=== PATIENT | male | born 1955 | race Caucasian/White ===

== ENCOUNTER 2017-02-06 20:24 | Emergency (ER) | payer OTHER ==
[~2017-02-06] VITALS: Ht 177.8 cm; Wt 97.8 kg
[2017-02-06] MEDS ORDERED: NEXI20GR PO (20:36)
[2017-02-06] MEDS ORDERED: GLUC1CAP9 PO (20:36)
[2017-02-06] MEDS ORDERED: MULT1CHW39 PO (20:36)
--- NOTE | 2017-02-06 22:50 | REPUSA ---
CT of the head Clinical history: trauma. Technique: Multiple axial CT images were obtained through the head without administration of contrast . Comparison: 01/09/2010. Findings: The ventricles and sulci are symmetric bilaterally. There is no evidence of acute hemorrhag e or infarct. There is no midline shift, mass effect, or extra-axial fluid collection. The osseous st ructures are unremarkable. The visualized paranasal sinuses and mastoid air cells are clear. Impression: Negative study.
[2017-02-06 23:14] VITALS: BP 169/84
== END 2017-02-06 23:16 | disposition home or self-care (01) ==
LOC: M ED 20:24
DX: S09.90XA Unspecified injury of head, initial encounter (principal); W18.09XA Striking against other object with subsequent fall, initial encounter; Y92.015 Private garage of single-family (private) house as the place of occurrence of the external cause; Y93.89 Activity, other specified; Y99.8 Other external cause status; K21.9 Gastro-esophageal reflux disease without esophagitis; Z79.82 Long term (current) use of aspirin; Z79.899 Other long term (current) drug therapy

== ENCOUNTER → 2017-04-21 | Outpatient (REF) | payer OTHER ==
[~2017-04-21] MED LIST: GLUC1CAP9 PO; MULT1CHW39 PO; NEXI20GR PO
[2017-04-21 20:13] LABS: MEAN CORPUSCULAR HEMOGLOBIN 26.3 pg (27.0-33.0); MEAN CORPUSCULAR HGB CONC 33.8 g/dl (32.0-36.5); MEAN CORPUSCULAR VOLUME 77.8 fl (80.0-96.0); RED CELL DISTRIBUTION WIDTH 14.7 % (11.5-14.5)
[2017-04-21 20:28] LABS: FOLATE 21.9 NG/ML (>5.4); VITAMIN B12 LEVEL 714 PG/ML (247-911)
[2017-04-21 20:50] LABS: ALBUMIN 3.7 GM/DL (3.2-5.2); ALBUMIN/GLOBULIN RATIO 1.19 (1.00-1.93); ALKALINE PHOSPHATASE 67 U/L (45-117); ALT/SGPT 36 U/L (12-78); ANION GAP 8 MEQ/L (8-16); AST/SGOT 27 U/L (15-37); BILIRUBIN,TOTAL 0.2 MG/DL (0.2-1.0); BLOOD UREA NITROGEN 24 MG/DL (7-18); CALCIUM LEVEL 8.6 MG/DL (8.8-10.2); CARBON DIOXIDE LEVEL 29 MEQ/L (21-32); CHLORIDE LEVEL 106 MEQ/L (98-107); FREE T4 0.95 NG/DL (0.76-1.46); GLOMERULAR FILTRATION RATE > 60.0 (>49); GLUCOSE, FASTING 90 MG/DL (80-110); POTASSIUM SERUM 4.3 MEQ/L (3.5-5.1); SODIUM LEVEL 143 MEQ/L (136-145); TOTAL PROTEIN 6.8 GM/DL (6.4-8.2)
== END ==
LOC: M SFHCADAM 15:53
PROVIDERS: ATTEND Family Medicine
DX: R06.09 Other forms of dyspnea (principal); R53.83 Other fatigue

== ENCOUNTER → 2017-04-28 | Outpatient (REF) | payer OTHER ==
[2017-04-28 19:56] LABS: PERCENT SATURATION 4.3 % (19.7-50.0)
[2017-04-28 20:39] LABS: MEAN CORPUSCULAR HEMOGLOBIN 25.1 pg (27.0-33.0); MEAN CORPUSCULAR VOLUME 78.5 fl (80.0-96.0); RETIC HEMOGLOBIN EQUIVALENT 25.9 pg (24-36); RETICULOCYTE % 1.6 % (0.5-1.5); WHITE BLOOD COUNT 6.7 10^3/uL (4.0-10.0)
[2017-05-02 00:09] LABS: FREE KAPPA LIGHT CHAINS SERUM 13.2 mg/L (3.3-19.4); KAPPA/LAMBDA RATIO SERUM 1.02 (0.26-1.65)
== END ==
LOC: M SFHCADAM 14:37
PROVIDERS: ATTEND Family Medicine
DX: D64.9 Anemia, unspecified (principal)

== ENCOUNTER → 2017-08-18 | Outpatient (CLI) | payer BC ==
[2017-08-18 19:59] LABS: BASO % 0.5 % (0.0-1.0); EOS # 0.2 10^3/uL (0.0-0.50); EOS % 2.7 % (0.0-3.0); HEMATOCRIT 37.5 % (42.0-52.0); HEMOGLOBIN 12.7 g/dl (14.0-18.0); IMMATURE GRANULOCYTE % 0.2 % (0-0); LYMPH # 1.6 10^3/uL (1.5-4.5); LYMPH % 27.2 % (24.0-44.0); MEAN CORPUSCULAR HEMOGLOBIN 27.6 pg (27.0-33.0); MEAN CORPUSCULAR HGB CONC 33.9 g/dl (32.0-36.5); MEAN CORPUSCULAR VOLUME 81.5 fl (80.0-96.0); MONO # 0.6 10^3/uL (0.0-0.8); MONO % 9.3 % (0.0-5.0); NEUTROPHILS # 3.6 10^3/uL (1.8-7.7); NEUTROPHILS % 60.1 % (36.0-66.0); PLATELET COUNT, AUTOMATED 181 10^3/uL (150-450)
[2017-08-18 22:33] LABS: ERYTHROCYTE SEDIMENTATION RATE 10 mm/hr (0-20)
== END ==
LOC: M WUC 18:34
DX: J02.9 Acute pharyngitis, unspecified (principal)
CPT/HCPCS: 85025

== ENCOUNTER 2017-08-30 09:28 | Day surgery (SDC) | payer BC, OTHER, SELFPAY ==
[2017-08-30] MEDS: NS 1,000 ML IV (10:00)
[2017-08-30] MEDS ORDERED: LIDOCAINE 2% INJ 100 MG/5 ML SDV (FOR ANES.) As Ordered (10:37)
[2017-08-30] MEDS ORDERED: PROPOFOL 200 MG/20 ML VIAL As Ordered ×3 (10:37→11:02)
== END 2017-08-30 11:55 | disposition home or self-care (01) ==
LOC: M OPP 09:28
DX: D50.9 Iron deficiency anemia, unspecified (principal); K62.1 Rectal polyp; K64.0 First degree hemorrhoids; K22.8 Other specified diseases of esophagus; K21.9 Gastro-esophageal reflux disease without esophagitis; R12 Heartburn; Z85.46 Personal history of malignant neoplasm of prostate; Z92.3 Personal history of irradiation; J00 Acute nasopharyngitis [common cold]; R06.83 Snoring; Z79.899 Other long term (current) drug therapy
CPT/HCPCS: 45380

== ENCOUNTER → 2017-09-27 | Outpatient (CLI) | payer BC ==
[2017-09-27 13:25] LABS: BLOOD UREA NITROGEN 20 MG/DL (7-18)
[2017-09-27 13:25] LABS: CREATININE FOR GFR 1.14 MG/DL (0.70-1.30); GLOMERULAR FILTRATION RATE > 60.0 (>49)
== END ==
LOC: M WUC 09:34
DX: Z01.812 Encounter for preprocedural laboratory examination (principal)
CPT/HCPCS: 82565

== ENCOUNTER → 2018-02-18 | Outpatient (REF) | payer BC ==
[2018-02-18 20:28] LABS: HEMATOCRIT 42.6 % (42.0-52.0); HEMOGLOBIN 14.2 g/dl (13.5-17.5); MEAN CORPUSCULAR HEMOGLOBIN 28.1 pg (27.0-33.0); MEAN CORPUSCULAR HGB CONC 33.3 g/dl (32.0-36.5); MEAN CORPUSCULAR VOLUME 84.2 fl (80.0-96.0); PLATELET COUNT, AUTOMATED 250 10^3/uL (150-450); RED BLOOD COUNT 5.06 10^6/uL (4.30-6.10); RED CELL DISTRIBUTION WIDTH 14.2 % (11.5-14.5); RETIC HEMOGLOBIN EQUIVALENT 31.6 pg (24-36); RETICULOCYTE # 60.2 10^9/L (17-77); RETICULOCYTE % 1.2 % (0.5-1.5); WHITE BLOOD COUNT 7.3 10^3/uL (4.0-10.0)
[2018-02-18 20:39] LABS: ALBUMIN/GLOBULIN RATIO 1.25 (1.00-1.93); ALKALINE PHOSPHATASE 87 U/L (45-117); ALT/SGPT 53 U/L (12-78); ANION GAP 8 MEQ/L (8-16); AST/SGOT 37 U/L (7-37); BILIRUBIN,TOTAL 0.3 MG/DL (0.2-1.0); BLOOD UREA NITROGEN 26 MG/DL (7-18); CALCIUM LEVEL 8.4 MG/DL (8.8-10.2); CARBON DIOXIDE LEVEL 29 MEQ/L (21-32); CHLORIDE LEVEL 106 MEQ/L (98-107); CHOLESTEROL LEVEL 171 MG/DL (<200); CREATININE FOR GFR 1.11 MG/DL (0.70-1.30); FERRITIN 13 NG/ML (26-388); FREE T4 1.04 NG/DL (0.76-1.46); GLOMERULAR FILTRATION RATE > 60.0 (>49); GLUCOSE, FASTING 92 MG/DL (70-100); HDL CHOLESTEROL 36 MG/DL (>40); IRON (FE) 36 UG/DL (65-175); NON-HDL-C 135 MG/DL; PERCENT SATURATION 9.5 % (19.7-50.0); POTASSIUM SERUM 4.2 MEQ/L (3.5-5.1); SODIUM LEVEL 143 MEQ/L (136-145); TOTAL IRON BINDING CAPACITY 377 UG/DL (250-450); TOTAL PROTEIN 7.2 GM/DL (6.4-8.2); TRIGLYCERIDES LEVEL 437 MG/DL (<150)
[2018-02-18 20:56] LABS: MALB URINE SIEMENS 32.1 MG/L; MAU/CREAT RATIO 19.1 MCG/MG (0.0-30.0)
== END ==
LOC: M SFHCADAM 14:57
DX: D50.0 Iron deficiency anemia secondary to blood loss (chronic) (principal); R53.83 Other fatigue; R03.0 Elevated blood-pressure reading, without diagnosis of hypertension; E78.2 Mixed hyperlipidemia
CPT/HCPCS: 83550

== ENCOUNTER 2018-09-05 11:59 | Day surgery (SDC) | payer BC ==
[~2018-09-05] VITALS: Ht 177.8 cm; Wt 96.6 kg
[~2018-09-05 11:59] MED LIST changes: +IRBE75TA5 PO; +IRON65TA PO; +LIDOCAINE 2% INJ 100 MG/5 ML SDV (FOR ANES.) As Ordered ONE; +NS 1,000 ML IV ONE; +PROPOFOL 200 MG/20 ML VIAL As Ordered ONE; +VITA500T PO
--- NOTE | 2018-09-05 13:44 | ROOR ---
Patient Name: Mark Robles Procedure Date: 09/05/2018 1:14 PM Date of : 1955 Age: 63 Room: [facility], [facility]IN [facility] Gender: Male Note Status: Finalized Procedure: Upper Endoscopy + Biopsies Indications: Pastrana's esophagus, Follow-up of Pastrana's esophagus Providers: Rancho Barbosa MD Referring MD: Mark Smith MD Requesting Provider: Medicines: Monitored Anesthesia Care Complications: No immediate complications. Procedure: Pre-Anesthesia Assessment: - The heart rate, respiratory rate, oxygen saturations, blood pressure, adequacy of pulmonary ventilation, and response to care were monitored throughout the procedure. The Endoscope was introduced through the mouth, and advanced to the second part of duodenum. The upper GI endoscopy was accomplished without difficulty. The patient tolerated the procedure well. Findings: The Z-line was variable and was found 45 cm from the incisors. Multiple biopsies were obtained with cold forceps for evaluation to rule out Pastrana's Esophagus randomly at the gastroesophageal junction. A small hiatal hernia was present. No other significant abnormalities were identified in a careful examination of the stomach. The exam of the duodenum was otherwise normal. Impression: - Z-line variable, 45 cm from the incisors. - Small hiatal hernia. - Multiple biopsies were obtained at the gastroesophageal junction. - The examination was otherwise normal. Recommendation: - Patient has a contact number available for emergencies. The signs and symptoms of potential delayed complications were discussed with the patient. Return to normal activities tomorrow. Written discharge instructions were provided to the patient. - High fiber diet. - Discharge patient to home. - Continue present medications. - Await pathology results. - Telephone GI clinic for pathology results in 1 week. - Return to referring physician. - Check Portal Online for Path Results.([email or web address] - The findings and recommendations were discussed with the patient's family. Rancho Barbosa MD Rancho Barbosa MD 09/05/2018 1:44:04 PM This report has been signed electronically. Number of Addenda: 0 Note Initiated On: 09/05/2018 1:14 PM Estimated Blood Loss: Estimated blood loss: none.
--- NOTE | 2018-09-05 13:48 | ROOR ---
Patient Name: Mark Robles Procedure Date: 09/05/2018 1:15 PM Date of : 1955 Age: 63 Room: [facility] Gender: Male Note Status: Finalized Procedure: Total Colonoscopy to Cecum Indications: High risk colon cancer surveillance: Personal history of colonic polyps, High risk colon cancer surveillance: Personal history of adenoma with villous component Providers: Rancho Barbosa MD Referring MD: Mark Smith MD Requesting Provider: Medicines: Monitored Anesthesia Care Complications: No immediate complications. Procedure: Pre-Anesthesia Assessment: - The heart rate, respiratory rate, oxygen saturations, blood pressure, adequacy of pulmonary ventilation, and response to care were monitored throughout the procedure. The Colonoscope was introduced through the anus and advanced to the cecum, identified by appendiceal orifice and ileocecal valve. The colonoscopy was performed without difficulty. The patient tolerated the procedure well. The quality of the bowel preparation was excellent. Findings: The perianal and digital rectal examinations were normal. Non-bleeding internal hemorrhoids were found during retroflexion. The hemorrhoids were small and Grade I (internal hemorrhoids that do not prolapse). No other significant abnormalities were identified in a careful examination of the remainder of the colon. The exam was otherwise without abnormality on direct and retroflexion views. Impression: - Non-bleeding internal hemorrhoids. - The examination was otherwise normal on direct and retroflexion views. - No specimens collected. - The exam was otherwise normal to the cecum. Recommendation: - Patient has a contact number available for emergencies. The signs and symptoms of potential delayed complications were discussed with the patient. Return to normal activities tomorrow. Written discharge instructions were provided to the patient. - High fiber diet. - Discharge patient to home. - Continue present medications. - Repeat colonoscopy in 5 years for surveillance. - Return to referring physician. - The findings and recommendations were discussed with the patient's family. Rancho Barbosa MD Rancho Barbosa MD 09/05/2018 1:47:33 PM This report has been signed electronically. Number of Addenda: 0 Note Initiated On: 09/05/2018 1:15 PM Estimated Blood Loss: Estimated blood loss: none.
[2018-09-05 14:22] VITALS: BP 160/91
== END 2018-09-05 14:24 | disposition home or self-care (01) ==
LOC: M OPP 11:59
PROVIDERS: ATTEND Internal Medicine Gastroenterology
DX: Z86.010 Personal history of colon polyps (principal); K64.0 First degree hemorrhoids; Z08 Encounter for follow-up examination after completed treatment for malignant neoplasm; K22.8 Other specified diseases of esophagus; K44.9 Diaphragmatic hernia without obstruction or gangrene; K22.70 Barrett's esophagus without dysplasia; Z79.82 Long term (current) use of aspirin; Z79.899 Other long term (current) drug therapy; Z80.0 Family history of malignant neoplasm of digestive organs

== ENCOUNTER → 2019-03-31 | Outpatient (REF) | payer BC ==
[~2019-03-31] MED LIST changes: -LIDOCAINE 2% INJ 100 MG/5 ML SDV (FOR ANES.) As Ordered ONE; -MULT1CHW39 PO; +MULT200T7 PO; -NS 1,000 ML IV ONE; -PROPOFOL 200 MG/20 ML VIAL As Ordered ONE
[2019-03-31 12:47] LABS: HEMATOCRIT 40.1 % (42.0-52.0); HEMOGLOBIN 12.3 g/dl (13.5-17.5); MEAN CORPUSCULAR HEMOGLOBIN 24.4 pg (27.0-33.0); MEAN CORPUSCULAR HGB CONC 30.7 g/dl (32.0-36.5); MEAN CORPUSCULAR VOLUME 79.4 fl (80.0-96.0); PLATELET COUNT, AUTOMATED 218 10^3/uL (150-450); RED BLOOD COUNT 5.05 10^6/uL (4.30-6.10); WHITE BLOOD COUNT 6.9 10^3/uL (4.0-10.0)
[2019-03-31 12:59] LABS: ALBUMIN 3.8 GM/DL (3.2-5.2); ALT/SGPT 36 U/L (12-78); BILIRUBIN,TOTAL 0.3 MG/DL (0.2-1.0); BLOOD UREA NITROGEN 20 MG/DL (7-18); CALCIUM LEVEL 8.9 MG/DL (8.8-10.2); CARBON DIOXIDE LEVEL 30 MEQ/L (21-32); CHLORIDE LEVEL 106 MEQ/L (98-107); CHOLESTEROL LEVEL 146 MG/DL (<200); CHOLESTEROL RISK RATIO 4.055 (<5); FREE T4 1.06 NG/DL (0.76-1.46); GLOMERULAR FILTRATION RATE > 60.0 (>49); GLUCOSE, FASTING 69 MG/DL (70-100); HDL CHOLESTEROL 36 MG/DL (>40); LDL CHOLESTEROL 65 MG/DL (<100); NON-HDL-C 110 MG/DL; POTASSIUM SERUM 4.5 MEQ/L (3.5-5.1); SODIUM LEVEL 144 MEQ/L (136-145); TOTAL PROTEIN 6.8 GM/DL (6.4-8.2); TRIGLYCERIDES LEVEL 223 MG/DL (<150)
== END ==
LOC: M SFHCADAM 08:21
PROVIDERS: ATTEND Physician Assistant
DX: I10 Essential (primary) hypertension (principal); E78.2 Mixed hyperlipidemia

== ENCOUNTER → 2019-08-17 | Outpatient (REF) | payer BC ==
[2019-08-17 19:12] LABS: HEMOGLOBIN 11.9 g/dl (13.5-17.5); MEAN CORPUSCULAR HEMOGLOBIN 23.4 pg (27.0-33.0); MEAN CORPUSCULAR HGB CONC 31.3 g/dl (32.0-36.5); MEAN CORPUSCULAR VOLUME 74.8 fl (80.0-96.0); PLATELET COUNT, AUTOMATED 236 10^3/uL (150-450); RED BLOOD COUNT 5.08 10^6/uL (4.30-6.10); WHITE BLOOD COUNT 7.2 10^3/uL (4.0-10.0)
[2019-08-17 19:25] LABS: ALT/SGPT 53 U/L (12-78); BILIRUBIN,TOTAL 0.3 MG/DL (0.2-1.0); BLOOD UREA NITROGEN 29 MG/DL (7-18); CALCIUM LEVEL 8.3 MG/DL (8.8-10.2); CARBON DIOXIDE LEVEL 31 MEQ/L (21-32); CHLORIDE LEVEL 100 MEQ/L (98-107); CHOLESTEROL LEVEL 125 MG/DL (<200); CHOLESTEROL RISK RATIO 3.048 (<5); CREATININE FOR GFR 1.04 MG/DL (0.70-1.30); FERRITIN 8 NG/ML (26-388); FREE T4 1.08 NG/DL (0.76-1.46); GLOMERULAR FILTRATION RATE > 60.0 (>49); GLUCOSE, FASTING 79 MG/DL (70-100); HDL CHOLESTEROL 41 MG/DL (>40); IRON (FE) 34 UG/DL (65-175); LDL CHOLESTEROL 46 MG/DL (<100); NON-HDL-C 84 MG/DL; PERCENT SATURATION 8.5 % (19.7-50.0); POTASSIUM SERUM 3.6 MEQ/L (3.5-5.1); SODIUM LEVEL 137 MEQ/L (136-145); TOTAL IRON BINDING CAPACITY 401 UG/DL (250-450); TOTAL PROTEIN 6.9 GM/DL (6.4-8.2); TRIGLYCERIDES LEVEL 188 MG/DL (<150)
[2019-08-17 19:27] LABS: FOLATE 20.8 NG/ML (>5.4); VITAMIN B12 LEVEL 845 PG/ML (247-911)
[2019-08-20 00:09] LABS: FREE KAPPA LIGHT CHAINS SERUM 18.2 mg/L (3.3-19.4); FREE LAMBDA LIGHT CHAINS SERUM 16.1 mg/L (5.7-26.3); KAPPA/LAMBDA RATIO SERUM 1.13 (0.26-1.65)
== END ==
LOC: M SFHCADAM 15:17
PROVIDERS: ATTEND Family Medicine
DX: R06.09 Other forms of dyspnea (principal); D64.9 Anemia, unspecified; I10 Essential (primary) hypertension; E78.2 Mixed hyperlipidemia

== ENCOUNTER → 2019-08-17 | Outpatient (CLI) | payer BC ==
--- NOTE | 2019-08-18 02:16 | REP ---
Clinical: Dyspnea on exertion . Comparison: 01/09/2010 . Technique: PA and lateral. Findings: The mediastinum and cardiac silhouette are normal. The lung guerin are clear and without acute consolidation, effusion, or pneumothorax. The skeletal structures are intact and normal. Impression: 1. No acute cardiopulmonary process. Electronically Signed by Carlos Gonzalez MD 08/18/2019 02:08 A
== END ==
LOC: M ADAMS 15:27
PROVIDERS: ATTEND Family Medicine
DX: R06.09 Other forms of dyspnea (principal)

== ENCOUNTER → 2020-01-05 | Outpatient (REF) | payer BC ==
[~2020-01-05] MED LIST changes: +IRBE75TA4 PO; -IRBE75TA5 PO; +VITA-243 PO; -VITA500T PO
[2020-01-05 13:02] LABS: HEMATOCRIT 44.3 % (42.0-52.0); HEMOGLOBIN 14.6 g/dl (13.5-17.5); MEAN CORPUSCULAR HEMOGLOBIN 25.9 pg (27.0-33.0); MEAN CORPUSCULAR VOLUME 78.5 fl (80.0-96.0); PLATELET COUNT, AUTOMATED 223 10^3/uL (150-450); RED BLOOD COUNT 5.64 10^6/uL (4.30-6.10); WHITE BLOOD COUNT 6.5 10^3/uL (4.0-10.0)
[2020-01-05 13:40] LABS: ALBUMIN 3.9 GM/DL (3.2-5.2); ALT/SGPT 57 U/L (12-78); BILIRUBIN,TOTAL 0.4 MG/DL (0.2-1.0); BLOOD UREA NITROGEN 22 MG/DL (7-18); CARBON DIOXIDE LEVEL 32 MEQ/L (21-32); CHLORIDE LEVEL 102 MEQ/L (98-107); CHOLESTEROL LEVEL 109 MG/DL (<200); CHOLESTEROL RISK RATIO 2.658 (<5); CREATININE FOR GFR 1.03 MG/DL (0.70-1.30); FERRITIN 11 NG/ML (26-388); GLOMERULAR FILTRATION RATE > 60.0 (>49); GLUCOSE, FASTING 89 MG/DL (70-100); HDL CHOLESTEROL 41 MG/DL (>40); IRON (FE) 75 UG/DL (65-175); LDL CHOLESTEROL 51 MG/DL (<100); NON-HDL-C 68 MG/DL; PERCENT SATURATION 19.7 % (19.7-50.0); POTASSIUM SERUM 4.1 MEQ/L (3.5-5.1); SODIUM LEVEL 142 MEQ/L (136-145); TOTAL IRON BINDING CAPACITY 381 UG/DL (250-450); TOTAL PROTEIN 7.1 GM/DL (6.4-8.2); TRIGLYCERIDES LEVEL 85 MG/DL (<150)
== END ==
LOC: M SFHCADAM 08:46
PROVIDERS: ATTEND Family Medicine
DX: I10 Essential (primary) hypertension (principal); D50.0 Iron deficiency anemia secondary to blood loss (chronic); E78.2 Mixed hyperlipidemia; N52.35 Erectile dysfunction following radiation therapy

== ENCOUNTER → 2021-01-17 | Outpatient (REF) | payer BC ==
[2021-01-17 19:52] LABS: HEMOGLOBIN 14.6 g/dl (13.5-17.5); MEAN CORPUSCULAR HEMOGLOBIN 29.5 pg (27.0-33.0); MEAN CORPUSCULAR VOLUME 86.9 fl (80.0-96.0); PLATELET COUNT, AUTOMATED 217 10^3/uL (150-450); RED BLOOD COUNT 4.95 10^6/uL (4.30-6.10); WHITE BLOOD COUNT 7.1 10^3/uL (4.0-10.0)
[2021-01-17 20:00] LABS: ALT/SGPT 51 U/L (12-78); BILIRUBIN,TOTAL 0.5 MG/DL (0.2-1.0); BLOOD UREA NITROGEN 17 MG/DL (7-18); CALCIUM LEVEL 8.8 MG/DL (8.8-10.2); CARBON DIOXIDE LEVEL 30 MEQ/L (21-32); CHLORIDE LEVEL 103 MEQ/L (98-107); CHOLESTEROL LEVEL 109 MG/DL (<200); CHOLESTEROL RISK RATIO 3.027 (<5); CREATININE FOR GFR 0.86 MG/DL (0.70-1.30); FERRITIN 33 NG/ML (26-388); GLOMERULAR FILTRATION RATE > 60.0 (>49); GLUCOSE, FASTING 69 MG/DL (70-100); HDL CHOLESTEROL 36 MG/DL (>40); LDL CHOLESTEROL 31 MG/DL (<100); NON-HDL-C 73 MG/DL; POTASSIUM SERUM 3.8 MEQ/L (3.5-5.1); PROSTATIC SPECIFIC AG MONITOR < 0.01 NG/ML (< 4.00); SODIUM LEVEL 139 MEQ/L (136-145); TOTAL PROTEIN 6.8 GM/DL (6.4-8.2); TRIGLYCERIDES LEVEL 210 MG/DL (<150)
== END ==
LOC: M SFHCADAM 15:44
PROVIDERS: ATTEND Family Medicine
DX: D50.0 Iron deficiency anemia secondary to blood loss (chronic) (principal); K22.70 Barrett's esophagus without dysplasia; I10 Essential (primary) hypertension; E78.2 Mixed hyperlipidemia; C61 Malignant neoplasm of prostate

== ENCOUNTER → 2021-11-19 | Outpatient (CLI) | payer BC ==
[~2021-11-19] MED LIST changes: +ASPI81CH33 PO; +ATOR1TAB21 PO; +CHLO25TA PO; +GLUC1CAP10 PO
== END ==
LOC: M LABSMTC 11:44
PROVIDERS: ATTEND Anesthesiology
DX: Z11.52 Encounter for screening for COVID-19 (principal); Z20.822 Contact with and (suspected) exposure to COVID-19

== ENCOUNTER 2021-11-24 12:03 | Day surgery (SDC) | payer BC ==
[~2021-11-24] VITALS: Ht 177.8 cm; Wt 96.6 kg
[~2021-11-24 12:03] MED LIST changes: +NS 1,000 ML IV ONE
[2021-11-24] MEDS ORDERED: fentaNYL 100 MCG/2 ML INJECTION As Ordered ONE (13:21)
[2021-11-24] MEDS ORDERED: propofoL 200 MG/20 ML VIAL As Ordered ONE (13:45)
[2021-11-24 13:59] VITALS: BP 159/87
== END 2021-11-24 14:01 | disposition home or self-care (01) ==
LOC: M OPP 12:03
PROVIDERS: ATTEND Internal Medicine Gastroenterology
DX: K22.89 Other specified disease of esophagus (principal); K22.70 Barrett's esophagus without dysplasia; R12 Heartburn; Z85.46 Personal history of malignant neoplasm of prostate; Z92.3 Personal history of irradiation; Z79.02 Long term (current) use of antithrombotics/antiplatelets; Z79.82 Long term (current) use of aspirin; Z79.899 Other long term (current) drug therapy
CPT/HCPCS: 43239; 88305; J3010

== ENCOUNTER → 2022-01-14 | Outpatient (CLI) | payer BC, OTHER ==
[~2022-01-14] MED LIST changes: -NS 1,000 ML IV ONE
[2022-01-14 08:52] LABS: HEMATOCRIT 40.8 % (42.0-52.0); HEMOGLOBIN 13.7 g/dl (13.5-17.5); MEAN CORPUSCULAR HEMOGLOBIN 26.9 pg (27.0-33.0); MEAN CORPUSCULAR HGB CONC 33.6 g/dl (32.0-36.5); PLATELET COUNT, AUTOMATED 209 10^3/uL (150-450); WHITE BLOOD COUNT 6.2 10^3/uL (4.0-10.0)
[2022-01-14 09:21] LABS: ALBUMIN 3.7 GM/DL (3.2-5.2); ALT/SGPT 49 U/L (12-78); BILIRUBIN,TOTAL 0.3 MG/DL (0.2-1.0); BLOOD UREA NITROGEN 19 MG/DL (7-18); CALCIUM LEVEL 9.2 MG/DL (8.8-10.2); CARBON DIOXIDE LEVEL 29 MEQ/L (21-32); CHLORIDE LEVEL 104 MEQ/L (98-107); CHOLESTEROL LEVEL 129 MG/DL (<200); CREATININE FOR GFR 1.22 MG/DL (0.70-1.30); FERRITIN 10 NG/ML (26-388); GLOMERULAR FILTRATION RATE > 60.0 (>49); GLUCOSE, FASTING 115 MG/DL (70-100); HDL CHOLESTEROL 43 MG/DL (>40); IRON (FE) 39 UG/DL (65-175); LDL CHOLESTEROL 67 MG/DL (<100); NON-HDL-C 86 MG/DL; PERCENT SATURATION 10.4 % (19.7-50.0); POTASSIUM SERUM 3.5 MEQ/L (3.5-5.1); PROSTATIC SPECIFIC AG MONITOR < 0.01 NG/ML (< 4.00); SODIUM LEVEL 140 MEQ/L (136-145); TOTAL IRON BINDING CAPACITY 375 UG/DL (250-450); TOTAL PROTEIN 6.8 GM/DL (6.4-8.2); TRIGLYCERIDES LEVEL 93 MG/DL (<150)
== END ==
LOC: M LAB 07:41
PROVIDERS: ATTEND Family Medicine
DX: D50.0 Iron deficiency anemia secondary to blood loss (chronic) (principal); E78.2 Mixed hyperlipidemia; C61 Malignant neoplasm of prostate

== ENCOUNTER → 2022-07-24 | Outpatient (REF) | payer BC | LOC: M SFHCADAM 09:12 | PROVIDERS: ATTEND Family Medicine | DX: Z53.20 Procedure and treatment not carried out because of patient's decision for unspecified reasons (principal) ==

== ENCOUNTER → 2022-09-11 | Outpatient (REF) | payer BC ==
[2022-09-11 22:00] LABS: HEMATOCRIT 41.7 % (42.0-52.0); HEMOGLOBIN 13.5 g/dl (13.5-17.5); MEAN CORPUSCULAR HEMOGLOBIN 26.6 pg (27.0-33.0); MEAN CORPUSCULAR HGB CONC 32.4 g/dl (32.0-36.5); MEAN CORPUSCULAR VOLUME 82.1 fl (80.0-96.0); PLATELET COUNT, AUTOMATED 215 10^3/uL (150-450); RED BLOOD COUNT 5.08 10^6/uL (4.30-6.10); WHITE BLOOD COUNT 6.2 10^3/uL (4.0-10.0)
[2022-09-11 22:28] LABS: ALBUMIN 3.9 G/DL (3.2-5.2); ALKALINE PHOSPHATASE 73 U/L (46-116); ALT/SGPT 33 U/L (7.0-40); AST/SGOT 14 U/L (<34); BILIRUBIN,TOTAL 0.4 MG/DL (0.3-1.2); BLOOD UREA NITROGEN 18 MG/DL (9-23); CALCIUM LEVEL 8.7 MG/DL (8.3-10.6); CARBON DIOXIDE LEVEL 29 MMOL/L (20-31); CHLORIDE LEVEL 104 MMOL/L (98-107); CHOLESTEROL LEVEL 102 MG/DL (<200); GLOMERULAR FILTRATION RATE > 60.0 (>49); GLUCOSE, FASTING 95 MG/DL (74-106); HDL CHOLESTEROL 36.4 MG/DL (>40); IRON (FE) 84 UG/DL (65-175); LDL CHOLESTEROL 29.6 MG/DL (<100); NON-HDL-C 66 MG/DL; PERCENT SATURATION 23.9 % (19.7-50.0); POTASSIUM SERUM 3.5 MMOL/L (3.5-5.1); SODIUM LEVEL 139 MMOL/L (136-145); TOTAL IRON BINDING CAPACITY 351 UG/DL (250-425); TOTAL PROTEIN 6.5 G/DL (5.7-8.2); TRIGLYCERIDES LEVEL 180 MG/DL (<150)
[2022-09-11 22:30] LABS: FERRITIN 10.7 NG/ML (10.5-307.3); FREE T4 1.11 NG/DL (0.89-1.76)
== END ==
LOC: M SFHCADAM 15:17
PROVIDERS: ATTEND Family Medicine
DX: E78.2 Mixed hyperlipidemia (principal); D50.0 Iron deficiency anemia secondary to blood loss (chronic); I10 Essential (primary) hypertension; R73.03 Prediabetes; Z85.46 Personal history of malignant neoplasm of prostate

== ENCOUNTER 2023-03-07 17:54 | Emergency (ER) | payer BC ==
[~2023-03-07] VITALS: Ht 177.8 cm; Wt 95.0 kg
[2023-03-07 18:28] VITALS: TEMP 95.6
[2023-03-07] MEDS ORDERED: MORPHINE 4 MG/ML 1ML VIAL IV ONE (18:45)
[2023-03-07] MEDS ORDERED: BOOSTRIX VACCINE (TETANUS/DIPHTH/ACEL. PERTUSSIS) 0.5ML SYR IM.IMMUN ONE (19:35)
[2023-03-07] MEDS ORDERED: SILVER SULFADIAZINE 1% CR 50 GM JAR TOP ONE (19:40)
[2023-03-07] MEDS ORDERED: SILV1CRE60 TOP (19:54)
[2023-03-07 20:20] VITALS: BP 164/81; O2SAT 98
== END 2023-03-07 20:20 | disposition home or self-care (01) ==
LOC: M ED 17:54
DX: T23.201A Burn of second degree of right hand, unspecified site, initial encounter (principal); X19.XXXA Contact with other heat and hot substances, initial encounter; Y92.009 Unspecified place in unspecified non-institutional (private) residence as the place of occurrence of the external cause; Y93.89 Activity, other specified; Y99.8 Other external cause status; I10 Essential (primary) hypertension; Z79.899 Other long term (current) drug therapy; Z79.82 Long term (current) use of aspirin

== ENCOUNTER → 2023-07-13 | Outpatient (REF) | payer BC ==
[~2023-07-13] MED LIST changes: +SILV1CRE60 TOP
[2023-07-13 16:14] LABS: HEMOGLOBIN 12.2 g/dl (13.5-17.5); MEAN CORPUSCULAR HEMOGLOBIN 25.3 pg (27.0-33.0); MEAN CORPUSCULAR HGB CONC 32.1 g/dl (32.0-36.5); MEAN CORPUSCULAR VOLUME 78.7 fl (80.0-96.0); PLATELET COUNT, AUTOMATED 243 10^3/uL (150-450); RED BLOOD COUNT 4.83 10^6/uL (4.30-6.10); WHITE BLOOD COUNT 6.8 10^3/uL (4.0-10.0)
[2023-07-13 16:25] LABS: FREE T4 1.07 NG/DL (0.89-1.76)
[2023-07-13 16:26] LABS: ALKALINE PHOSPHATASE 67 U/L (46-116); ALT/SGPT 33 U/L (7.0-40); AST/SGOT 22 U/L (<34); BILIRUBIN,TOTAL 0.5 MG/DL (0.3-1.2); BLOOD UREA NITROGEN 22 MG/DL (9-23); CALCIUM LEVEL 9.5 MG/DL (8.3-10.6); CARBON DIOXIDE LEVEL 30 MMOL/L (20-31); CHLORIDE LEVEL 104 MMOL/L (98-107); CREATININE FOR GFR 0.88 MG/DL (0.70-1.30); GLOMERULAR FILTRATION RATE > 60.0 (>49); GLUCOSE, FASTING 85 MG/DL (74-106); POTASSIUM SERUM 4.1 MMOL/L (3.5-5.1); SODIUM LEVEL 141 MMOL/L (136-145); TOTAL PROTEIN 6.6 G/DL (5.7-8.2)
[2023-07-13 16:56] LABS: THYROID STIMULATING HORMONE 2.978 uIU/ML (0.55-4.78)
== END ==
LOC: M SFHCADAM 11:29
PROVIDERS: ATTEND Family Medicine
DX: R55 Syncope and collapse (principal)

== ENCOUNTER 2023-07-30 10:25 | Emergency (ER) | payer BC ==
[~2023-07-30] VITALS: Ht 177.8 cm; Wt 95.9 kg
[2023-07-30 11:29] LABS: BASO % 0.5 % (0.0-1.0); EOS # 0.1 10^3/uL (0.0-0.5); EOS % 2.2 % (0.0-3.0); HEMATOCRIT 38.4 % (42.0-52.0); HEMOGLOBIN 12.4 g/dl (13.5-17.5); LYMPH # 1.3 10^3/uL (1.5-5.0); LYMPH % 20.4 % (24.0-44.0); MEAN CORPUSCULAR HEMOGLOBIN 24.8 pg (27.0-33.0); MEAN CORPUSCULAR HGB CONC 32.3 g/dl (32.0-36.5); MEAN CORPUSCULAR VOLUME 76.6 fl (80.0-96.0); MONO # 0.6 10^3/uL (0.0-0.8); MONO % 9.1 % (2.0-8.0); NEUTROPHILS # 4.3 10^3/uL (1.5-8.5); NEUTROPHILS % 67.5 % (36.0-66.0); PLATELET COUNT, AUTOMATED 205 10^3/uL (150-450); RED BLOOD COUNT 5.01 10^6/uL (4.30-6.10); WHITE BLOOD COUNT 6.4 10^3/uL (4.0-10.0)
[2023-07-30 11:56] LABS: CPK CREATINE PHOSPHOKINASE 255 U/L (46-171)
[2023-07-30 11:57] LABS: ALBUMIN 3.9 G/DL (3.2-5.2); ALKALINE PHOSPHATASE 65 U/L (46-116); ALT/SGPT 40 U/L (7.0-40); AST/SGOT 30 U/L (<34); BILIRUBIN,TOTAL 0.6 MG/DL (0.3-1.2); BLOOD UREA NITROGEN 21 MG/DL (9-23); CALCIUM LEVEL 8.6 MG/DL (8.3-10.6); CARBON DIOXIDE LEVEL 32 MMOL/L (20-31); CHLORIDE LEVEL 101 MMOL/L (98-107); CK-MB VALUE MASS 2.8 NG/ML (<3.6); CREATININE FOR GFR 0.89 MG/DL (0.70-1.30); GLOMERULAR FILTRATION RATE > 60.0 (>49); GLUCOSE, FASTING 96 MG/DL (74-106); MB/CK RELATIVE INDEX 1.09 (< OR =4); POTASSIUM SERUM 3.3 MMOL/L (3.5-5.1); SODIUM LEVEL 139 MMOL/L (136-145); TOTAL PROTEIN 6.5 G/DL (5.7-8.2)
[2023-07-30 12:00] LABS: THYROID STIMULATING HORMONE 1.769 uIU/ML (0.55-4.78)
[2023-07-30 12:01] LABS: FREE T4 1.09 NG/DL (0.89-1.76)
[2023-07-30] MEDS ORDERED: NS 500 ML IV ONE (12:30)
[2023-07-30] MEDS ORDERED: POTASSIUM CHLORIDE 10MEQ SR TABLET PO ONE (12:30)
[2023-07-30 12:59] LABS: CK-MB VALUE MASS 2.1 NG/ML (<3.6)
[2023-07-30 13:04] LABS: MB/CK RELATIVE INDEX 0.91 (< OR =4)
[2023-07-30] MEDS ORDERED: ISOVUE-370 76% 100ML VIAL As Ordered ONE (13:26)
[2023-07-30] MEDS ORDERED: HOLTER MONITOR XX (13:35)
[2023-07-30] MEDS ORDERED: [UNRECOGNIZED DRUG - OTHER] (13:36)
[2023-07-30 15:12] LABS: MB/CK RELATIVE INDEX 0.87 (< OR =4)
[2023-07-30 15:27] VITALS: BP 169/82; TEMP 96.8; O2SAT 100
== END 2023-07-30 15:33 | disposition home or self-care (01) ==
LOC: M ED 10:25
DX: R06.00 Dyspnea, unspecified (principal); I44.7 Left bundle-branch block, unspecified; Z88.8 Allergy status to other drugs, medicaments and biological substances; I10 Essential (primary) hypertension; Z85.46 Personal history of malignant neoplasm of prostate; Z79.899 Other long term (current) drug therapy; Z79.82 Long term (current) use of aspirin
CPT/HCPCS: 36415; 70450; 71045; 71275; 80053; 82550; 82553; 84439; 84443; 84484; 85025; 93005; 93041; 94760; 99285; Q9967

== ENCOUNTER → 2023-08-04 | Outpatient (CLI) | payer BC ==
[~2023-08-04] MED LIST changes: +HOLTER MONITOR XX; +[UNRECOGNIZED DRUG - OTHER]
== END ==
LOC: M EKG 13:56
PROVIDERS: ATTEND Emergency Medicine
DX: R00.2 Palpitations (principal)

== ENCOUNTER → 2023-10-14 | Outpatient (CLI) | payer BC ==
[~2023-10-14] MED LIST changes: +IRBE75TA11 PO; -IRBE75TA4 PO
== END ==
LOC: M LAB 07:38
PROVIDERS: ATTEND Nurse Practitioner
DX: Z85.46 Personal history of malignant neoplasm of prostate (principal)

== ENCOUNTER → 2024-05-04 | Outpatient (REF) | payer MEDICARE ==
[~2024-05-04] MED LIST changes: -MULT200T7 PO; +MULT200T9 PO
[2024-05-04 14:17] LABS: FERRITIN 8.5 NG/ML (10.5-307.3)
[2024-05-04 14:18] LABS: HEMATOCRIT 40.9 % (42.0-52.0); HEMOGLOBIN 13.1 g/dl (13.5-17.5); MEAN CORPUSCULAR HEMOGLOBIN 25.5 pg (27.0-33.0); MEAN CORPUSCULAR VOLUME 79.6 fl (80.0-96.0); PLATELET COUNT, AUTOMATED 209 10^3/uL (150-450); RED BLOOD COUNT 5.14 10^6/uL (4.30-6.10); WHITE BLOOD COUNT 5.9 10^3/uL (4.0-10.0)
[2024-05-04 14:19] LABS: TOTAL IRON BINDING CAPACITY 375 UG/DL (250-425)
[2024-05-04 14:20] LABS: ALKALINE PHOSPHATASE 75 U/L (46-116); ALT/SGPT 39 U/L (7.0-40); AST/SGOT 29 U/L (<34); BILIRUBIN,TOTAL 0.7 MG/DL (0.3-1.2); BLOOD UREA NITROGEN 20 MG/DL (9-23); CALCIUM LEVEL 9.6 MG/DL (8.3-10.6); CARBON DIOXIDE LEVEL 31 MMOL/L (20-31); CHLORIDE LEVEL 106 MMOL/L (98-107); CHOLESTEROL LEVEL 110 MG/DL (<200); CHOLESTEROL RISK RATIO 3.16 (<5); CREATININE FOR GFR 0.99 MG/DL (0.70-1.30); GLOMERULAR FILTRATION RATE > 60.0 (>42); GLUCOSE, FASTING 95 MG/DL (74-106); HDL CHOLESTEROL 34.8 MG/DL (>40); IRON (FE) 49 UG/DL (65-175); LDL CHOLESTEROL 56.4 MG/DL (<100); NON-HDL-C 75.2 MG/DL; PERCENT SATURATION 13.1 % (19.7-50.0); POTASSIUM SERUM 3.9 MMOL/L (3.5-5.1); SODIUM LEVEL 139 MMOL/L (136-145); TOTAL PROTEIN 6.8 G/DL (5.7-8.2); TRIGLYCERIDES LEVEL 94 MG/DL (<150)
[2024-05-04 14:30] LABS: HEMOGLOBIN A1c 5.5 % (4.0-6.0)
== END ==
LOC: M SFHCADAM 09:11
PROVIDERS: ATTEND Family Medicine
DX: I10 Essential (primary) hypertension (principal); E78.2 Mixed hyperlipidemia; R73.03 Prediabetes; D50.0 Iron deficiency anemia secondary to blood loss (chronic)

== ENCOUNTER 2024-08-06 16:04 | Observation (INO) | payer BC, MEDICARE ==
[~2024-08-06] VITALS: Ht 177.8 cm; Wt 92.6 kg
[2024-08-06] MEDS ORDERED: CYCL1DRO10 OU (16:13)
[2024-08-06] MEDS ORDERED: CIPR7.5D2 AU (16:13)
[2024-08-06 17:06] LABS: BASO % 0.2 % (0.0-1.0); EOS % 0.2 % (0.0-3.0); HEMATOCRIT 47.3 % (42.0-52.0); HEMOGLOBIN 15.6 g/dl (13.5-17.5); LYMPH # 1.1 10^3/uL (1.5-5.0); LYMPH % 4.8 % (24.0-44.0); MEAN CORPUSCULAR VOLUME 78.7 fl (80.0-96.0); MONO # 1.2 10^3/uL (0.0-0.8); MONO % 5.3 % (2.0-8.0); NEUTROPHILS # 20.6 10^3/uL (1.5-8.5); NEUTROPHILS % 88.9 % (36.0-66.0); PLATELET COUNT, AUTOMATED 216 10^3/uL (150-450); RED BLOOD COUNT 6.01 10^6/uL (4.30-6.10); WHITE BLOOD COUNT 23.1 10^3/uL (4.0-10.0)
[2024-08-06] MEDS: MORPHINE 2 MG/ML 1ML VIAL IV ONE (17:10)
[2024-08-06] MEDS: NS 500 ML IV ONE (17:11)
[2024-08-06 17:20] LABS: ALBUMIN 4.3 G/DL (3.2-5.2); ALKALINE PHOSPHATASE 89 U/L (40-129); ALT/SGPT 24 U/L (7.0-40); AST/SGOT 23 U/L (<34); BILIRUBIN,TOTAL 1.4 MG/DL (0.3-1.2); BLOOD UREA NITROGEN 14 MG/DL (9-23); CALCIUM LEVEL 9.9 MG/DL (8.3-10.6); CARBON DIOXIDE LEVEL 27 MMOL/L (20-31); CHLORIDE LEVEL 96 MMOL/L (98-107); CREATININE FOR GFR 1.06 MG/DL (0.70-1.30); GLOMERULAR FILTRATION RATE > 60.0 (>42); GLUCOSE, FASTING 143 MG/DL (74-106); POTASSIUM SERUM 3.3 MMOL/L (3.5-5.1); SODIUM LEVEL 136 MMOL/L (136-145); TOTAL PROTEIN 7.7 G/DL (5.7-8.2)
[2024-08-06 17:45] LABS: LIPASE 30 U/L (12-53)
[2024-08-06] MEDS: PIPERACILLIN/TAZOBACTAM SOD 3.375 GM in DEXTROSE 5% (D5W) ADV/MINI-BAG 50 ML IV ONE (17:53)
[2024-08-06] MEDS: ONDANSETRON 4MG 2ML VIAL IV ONE (18:02)
[2024-08-06] MEDS ORDERED: fentaNYL 100 MCG/2 ML INJECTION As Ordered ONE (18:16)
[2024-08-06] MEDS ORDERED: propofoL 200 MG/20 ML VIAL As Ordered ONE (18:16)
[2024-08-06] MEDS ORDERED: MIDAZOLAM INJ 2MG/2ML VIAL As Ordered ONE (18:16)
[2024-08-06] MEDS ORDERED: SUGAMMADEX SODIUM 500 MG/5 ML VIAL (BRIDION) As Ordered ONE (18:16)
[2024-08-06] MEDS ORDERED: LIDOCAINE 2% 100MG/5ML SDV (FOR ANES.) As Ordered ONE (18:16)
[2024-08-06] MEDS ORDERED: ROCURONIUM BROMIDE 50MG/5ML VIAL As Ordered ONE (18:16)
[2024-08-06] MEDS ORDERED: ONDANSETRON 4MG 2ML VIAL As Ordered ONE (18:16)
[2024-08-06] MEDS: LIDOCAINE 1% MDV 20ML VIAL As Ordered ONE (19:30)
[2024-08-06] MEDS ORDERED: HYDROmorphone HCL 2MG/ML 1ML VIAL As Ordered ONE (19:52)
[2024-08-06] MEDS ORDERED: ONDANSETRON 4MG 2ML VIAL IV PRN (20:10)
[2024-08-06] MEDS ORDERED: PERCOCET 5MG/325MG TAB PO PRN ×2 (20:10)
[2024-08-06] MEDS ORDERED: PIPERACILLIN/TAZOBACTAM SOD 3.375 GM in DEXTROSE 5% (D5W) ADV/MINI-BAG 50 ML IV ONE (20:10)
[2024-08-06] MEDS: LR 1,000 ML IV SCH (20:30)
[2024-08-06 21:30] VITALS: BP 117/59; TEMP 97.3; O2SAT 93
[2024-08-06 22:01] VITALS: BP 129/67; TEMP 96.8; O2SAT 95
[2024-08-06] MEDS ORDERED: IRBE150T27 PO (22:04)
[2024-08-06] MEDS ORDERED: HOME MED LIST COMPLETE! XX SCH (22:05)
[2024-08-06 22:34] VITALS: BP 126/65; TEMP 97; O2SAT 95
[2024-08-06 23:42] VITALS: BP 128/60; TEMP 96.6; O2SAT 95
[2024-08-06] MEDS: KETOROLAC 30 MG/ML 1ML VIAL IV SCH (23:51)
[2024-08-06] MEDS: PIPERACILLIN/TAZOBACTAM SOD 3.375 GM in DEXTROSE 5% (D5W) ADV/MINI-BAG 50 ML IV SCH (23:51)
[2024-08-07] VITALS (9 sets, daily range): BP systolic 115–167; BP diastolic 55–84; TEMP 96.6–97.9; O2SAT 92–96
[2024-08-07 00:56] LABS: KETONE, URINE AUTO RFX NEGATIVE (NEGATIVE); LEUKOCYTE ESTERASE UR AUTO RFX NEGATIVE (NEGATIVE); NITRITE, URINE AUTO RFX NEGATIVE (NEGATIVE); RBC, URINE AUTO RFX 6 /HPF (0-3); SQUAM EPITHELIAL CELL UR AURFX 0 /HPF (0-6); WBC, URINE AUTO RFX 1 /HPF (0-3)
[2024-08-07 06:57] LABS: BASO % 0.1 % (0.0-1.0); LYMPH # 0.6 10^3/uL (1.5-5.0); LYMPH % 3.3 % (24.0-44.0); MEAN CORPUSCULAR HEMOGLOBIN 26.6 pg (27.0-33.0); MEAN CORPUSCULAR HGB CONC 34.2 g/dl (32.0-36.5); MEAN CORPUSCULAR VOLUME 77.9 fl (80.0-96.0); MONO # 0.6 10^3/uL (0.0-0.8); MONO % 3.3 % (2.0-8.0); NEUTROPHILS # 17.7 10^3/uL (1.5-8.5); NEUTROPHILS % 92.7 % (36.0-66.0); PLATELET COUNT, AUTOMATED 150 10^3/uL (150-450); RED BLOOD COUNT 4.88 10^6/uL (4.30-6.10)
[2024-08-07 07:43] LABS: C REACTIVE PROTEIN QUANTITATIV 20.64 MG/DL (<1.0)
[2024-08-07 07:45] LABS: BLOOD UREA NITROGEN 14 MG/DL (9-23); CALCIUM LEVEL 8.6 MG/DL (8.3-10.6); CARBON DIOXIDE LEVEL 28 MMOL/L (20-31); CHLORIDE LEVEL 98 MMOL/L (98-107); CREATININE FOR GFR 1.05 MG/DL (0.70-1.30); GLOMERULAR FILTRATION RATE > 60.0 (>42); GLUCOSE, FASTING 151 MG/DL (74-106); POTASSIUM SERUM 3.7 MMOL/L (3.5-5.1); SODIUM LEVEL 136 MMOL/L (136-145)
[2024-08-07] MEDS: CHLORTHALIDONE 25 MG TAB PO SCH (09:07)
[2024-08-07] MEDS: ATORVASTATIN 20 MG TAB PO SCH (09:07)
[2024-08-07] MEDS: IRBESARTAN 150MG TAB PO SCH (12:02)
[2024-08-08 04:10] VITALS: BP 149/78; TEMP 97.2; O2SAT 95
[2024-08-08 09:09] LABS: BASO % 0.1 % (0.0-1.0); EOS % 0.3 % (0.0-3.0); HEMATOCRIT 38.8 % (42.0-52.0); LYMPH # 1.4 10^3/uL (1.5-5.0); LYMPH % 10.3 % (24.0-44.0); MEAN CORPUSCULAR HEMOGLOBIN 26.2 pg (27.0-33.0); MEAN CORPUSCULAR HGB CONC 33.5 g/dl (32.0-36.5); MEAN CORPUSCULAR VOLUME 78.1 fl (80.0-96.0); MONO # 0.6 10^3/uL (0.0-0.8); MONO % 4.2 % (2.0-8.0); NEUTROPHILS # 11.6 10^3/uL (1.5-8.5); NEUTROPHILS % 84.7 % (36.0-66.0); PLATELET COUNT, AUTOMATED 170 10^3/uL (150-450); RED BLOOD COUNT 4.97 10^6/uL (4.30-6.10); WHITE BLOOD COUNT 13.7 10^3/uL (4.0-10.0)
[2024-08-08 09:58] VITALS: BP 158/78
[2024-08-08 12:00] VITALS: BP 165/83; TEMP 97.7; O2SAT 95
[2024-08-08] MEDS ORDERED: AMOX500T2 PO (12:46)
[2024-08-08] MEDS ORDERED: PERCOCET PO (12:46)
[2024-08-08] MEDS ORDERED: METR-265 PO (12:48)
== END 2024-08-08 13:50 | disposition home or self-care (01) ==
LOC: M ED 16:04 → M SDC 17:36 → M MS5PR 17:37
PROVIDERS: ADMIT Surgery; ATTEND Surgery
DX: K35.201 Acute appendicitis with generalized peritonitis, with perforation, without abscess (principal); R11.2 Nausea with vomiting, unspecified; D72.829 Elevated white blood cell count, unspecified; R79.82 Elevated C-reactive protein (CRP); R63.0 Anorexia; I10 Essential (primary) hypertension; K21.9 Gastro-esophageal reflux disease without esophagitis; I44.7 Left bundle-branch block, unspecified; Z85.46 Personal history of malignant neoplasm of prostate; Z90.79 Acquired absence of other genital organ(s); Z88.8 Allergy status to other drugs, medicaments and biological substances; Z79.899 Other long term (current) drug therapy; Z79.82 Long term (current) use of aspirin
CPT/HCPCS: 36415; 44970; 74176; 80047; 80048; 80053; 81001; 83605; 83690; 85025; 86140; 86850; 87040; 88304; 93005; 96365; 96375; 96376; 99284; G0378; J0665; J1100; J1171; J1885; J2250; J2405; J2543; J3010

== ENCOUNTER → 2025-07-18 | Day surgery (SDC) | payer MEDICARE ==
[~2025-07-18] VITALS: Ht 177.8 cm; Wt 91.2 kg
[~2025-07-18] MED LIST changes: +AMOX500T2 PO; +CIPR7.5D2 AU; +CYCL1DRO10 OU; +GLYCOPYRROLATE INJ 0.2 MG/ML 2 ML VIAL As Ordered ONE; +IRBE150T27 PO; +LIDOCAINE 2% 100 MG/5 ML SDV (FOR ANES.) As Ordered ONE; +METR-265 PO; +NEXI20TA PO; +PERCOCET PO
[2025-07-18 13:07] VITALS: BP 137/88; O2SAT 94
== END | disposition home or self-care (01) ==
LOC: M OPP 11:03
PROVIDERS: ATTEND Surgery
DX: D12.5 Benign neoplasm of sigmoid colon (principal); K64.4 Residual hemorrhoidal skin tags; Z86.0100 Personal history of colon polyps, unspecified; K22.70 Barrett's esophagus without dysplasia; R12 Heartburn; Z79.82 Long term (current) use of aspirin; Z79.899 Other long term (current) drug therapy
CPT/HCPCS: 43235; 45380; 88305; J1596; J3010